=== PATIENT | female | born 1945 | race American Indian/Alaskan Native ===

== ENCOUNTER 2017-03-07 08:25 | Outpatient (CLI) | payer MEDICARE ==
--- NOTE | 2017-03-07 09:27 | Cat Scan Report ---
CT scan of abdomen without IV contrast: Compared to 02/19/16. Findings: Normal lung bases. No pleural pericardial effusion. Circumscribed ill-defined hypodensity liver without interval change. Normal gallbladder pancreas and spleen. Normal adrenals. Multiple cysts left kidney without interval change. No significant interval change in the right kidney. Grossly normal bowel gas pattern. No evidence of adenopathy. Impression: Multiple circumscribed hypodensity left kidney probably cyst without significant interval change. Overall no significant interval change compared to previous study.
== END 2017-03-07 08:26 | disposition home or self-care (01) ==
LOC: CT 08:25
PROVIDERS: ATTEND Urology
DX: D30.02 Benign neoplasm of left kidney (principal); N28.1 Cyst of kidney, acquired
CPT/HCPCS: 74150